=== PATIENT | female | born 1985 | race Two or more races ===

== ENCOUNTER → 2017-06-06 | Emergency (ER) | payer OTHER ==
[~2017-06-06] VITALS: Ht 167.6 cm; Wt 65.8 kg
[~2017-06-06] MED LIST: PNEU16DI2; PROVENTIL0.5 ML/2.5
== END | disposition home or self-care (01) ==
LOC: ER 17:37
DX: K52.9 Noninfective gastroenteritis and colitis, unspecified (principal)

== ENCOUNTER 2019-07-19 15:23 | Outpatient (CLI) | payer OTHER | END 2019-07-19 15:33 | disposition home or self-care (01) | LOC: MRI 15:23 | DX: M25.562 Pain in left knee (principal) | CPT/HCPCS: 73721 ==

== ENCOUNTER 2021-07-06 11:27 | Outpatient (CLI) | payer OTHER | END 2021-07-06 11:41 | disposition home or self-care (01) | LOC: RAD 11:27 | PROVIDERS: ATTEND Orthopaedic Surgery | DX: M25.561 Pain in right knee (principal); M25.562 Pain in left knee; S83.200A Bucket-handle tear of unspecified meniscus, current injury, right knee, initial encounter | CPT/HCPCS: 73721 ==

== ENCOUNTER 2021-08-11 10:34 | Outpatient (CLI) | payer OTHER | END 2021-08-11 10:45 | disposition home or self-care (01) | LOC: SONOGRAMA 10:34 | PROVIDERS: ATTEND Obstetrics & Gynecology Obstetrics | DX: R10.2 Pelvic and perineal pain (principal); D25.1 Intramural leiomyoma of uterus; N93.8 Other specified abnormal uterine and vaginal bleeding ==

== ENCOUNTER → 2021-08-26 | Outpatient (CLI) | payer OTHER | END | disposition home or self-care (01) | LOC: RAD 15:29 | PROVIDERS: ATTEND Orthopaedic Surgery | DX: M25.551 Pain in right hip (principal); M25.552 Pain in left hip ==

== ENCOUNTER 2021-09-11 14:40 | Outpatient (CLI) | payer OTHER | END 2021-09-11 14:48 | disposition home or self-care (01) | LOC: LAB 14:40 | PROVIDERS: ATTEND General Practice | DX: Z20.822 Contact with and (suspected) exposure to COVID-19 (principal) ==

== ENCOUNTER 2024-02-27 12:01 | Outpatient (CLI) | payer OTHER | END 2024-02-27 12:20 | disposition home or self-care (01) | LOC: RAD 12:01 | PROVIDERS: ATTEND Orthopaedic Surgery | DX: M25.561 Pain in right knee (principal) ==

== ENCOUNTER 2024-05-25 13:26 | Outpatient (CLI) | payer OTHER | END 2024-05-25 13:30 | disposition home or self-care (01) | LOC: RAD 13:26 | PROVIDERS: ATTEND Internal Medicine Pulmonary Disease | DX: J45.31 Mild persistent asthma with (acute) exacerbation (principal) ==

== ENCOUNTER 2024-08-23 14:30 | Emergency (ER) | payer OTHER ==
[~2024-08-23] VITALS: Ht 167.6 cm; Wt 68.0 kg
[2024-08-23 14:53] VITALS: BP 103/68; O2SAT 99
[2024-08-23] MEDS ORDERED: DYMISTA NASAL S23 GM (14:54)
[2024-08-23] MEDS ORDERED: SYMBICORT 80/10.2 GM (14:55)
[2024-08-23] MEDS ORDERED: COZAAR100 MG (14:55)
[2024-08-23] MEDS ORDERED: TOPROL XL25 M1 (14:56)
[2024-08-23] MEDS ORDERED: DEXAMETHASONE SODIUM PHOSP/PF 10 MG/ML VIAL IV ONE (17:00)
[2024-08-23] MEDS ORDERED: DEXAMETHASONE SODIUM PHOSPHATE 4 MG/ML VIAL ONE (17:01)
[2024-08-23 17:24] LABS: HEMATOCRIT 36.9 % (36.0-45.00); HEMOGLOBIN 12.1 g/dL (12.0-15.00); MEAN CELL VOLUME 78.2 fL (80.00-100.00); MEAN CORPUSCULAR HEMOGLOBIN 25.6 pg (27.00-32.0); MEAN CORPUSCULAR HGB CONC 32.8 g/dl (32.0-36.0); PLATELET COUNT 382 K/uL (150-450); RED BLOOD COUNT 4.72 M/uL (4.00-6.00); RED CELL DISTRIBUTION WIDTH 15.5 % (11.5-14.5)
[2024-08-23 18:09] LABS: ALBUMIN 3.8 gm/dL (3.4-5.0); ALKALINE PHOSPHATASE 106 U/L (50-136); ALT/SGPT 17 U/L (12-78); ANION GAP 9 (10.0-20.0); AST/SGOT 17 U/L (15-37); BILIRUBIN TOTAL 0.29 mg/dL (0.3-1.2); BLOOD UREA NITROGEN 9 mg/dL (7-18); BUN CREA RATIO 14 (7.0-25.0); CALCIUM 9.3 mg/dL (8.5-10.1); CARBON DIOXIDE 30 mEq/L (21-32); CHLORIDE 104 mmol/L (98-107); CREATININE SERUM 0.66 mg/dL (0.55-1.02); GLOBULINA 3.8 G/DL (2.4-3.5); GLUCOSE FASTING 114 mg/dL (65-100); OSMOLALITY SERUM 279 MOSM/KG (275-295); POTASSIUM 3.43 mEq/L (3.5-5.1); SODIUM 140 mmol/L (136-145); TOTAL PROTEIN 7.6 gm/dL (6.4-8.2)
[2024-08-23 18:13] LABS: HCG QUANTITATIVE < 1 mUI/mL (1-3)
[2024-08-23] MEDS ORDERED: GABAPENTIN300 M2 PO (21:45)
== END 2024-08-23 21:52 | disposition home or self-care (01) ==
LOC: ER 14:31
PROVIDERS: General Practice
DX: R20.0 Anesthesia of skin (principal)

== ENCOUNTER 2024-11-21 13:37 | Outpatient (CLI) | payer OTHER ==
[~2024-11-21 13:37] MED LIST changes: +COZAAR100 MG; +DYMISTA NASAL S23 GM; +GABAPENTIN300 M2 PO; +SYMBICORT 80/10.2 GM; +TOPROL XL25 M1
== END 2024-11-21 13:44 | disposition home or self-care (01) ==
LOC: MRI 13:37
PROVIDERS: ATTEND Orthopaedic Surgery
DX: M25.562 Pain in left knee (principal)
CPT/HCPCS: 73721